=== PATIENT | female | born 1985 | race Caucasian/White ===

== ENCOUNTER 2018-01-11 22:34 | Emergency (ER) | payer OTHER ==
[~2018-01-11] VITALS: Ht 162.6 cm; Wt 105.2 kg
[2018-01-11 22:49] VITALS: BP 137/89
--- NOTE | 2018-01-11 23:12 | ED UPPER/LOWER EXTREMITY COMPL ---
History of Present Illness General Chief Complaint: Lower Extremity Injury Stated Complaint: "I FELL DOWN MY BACK STAIRS, I FELT THINGS OUCHY" Source: patient Exam Limitations: no limitations Vital Signs & Intake/Output Vital Signs & Intake/Output Vital Signs Date Time Temp Pulse Resp B/P B/P Pulse O2 O2 Flow FiO2 Mean Ox Delivery Rate 01/119 99.4 86 18 137/89 98 Room Air ED Intake and Output 01/12 0000 01/11 1200 Intake Total Output Total Balance Patient 232 lb Weight Weight Estimated Measurement Method Allergies Coded Allergies: No Known Allergies (01/11/18) Triage Note: RECEIVED 32 YO FEMALE C/O MISSED A STEP IN BACK STAIRS AND FELL DOWN 2 STEPS, INJURING LEFT ANKLE. PT REPORTS LEFT ANKLE PAIN AND SWELLING, SEVERE PAIN WITH WEIGHT BEARING Triage Nurses Notes Reviewed? yes Onset: Just prior to arrival Duration: hour(s): (1) Timing: remote history Severity: moderate Severity Numbers: 8 Pain/Injury Location: Right: Ankle. Method of Injury: twisted Modifying Factors: Improves With: immobilization. Worsens With: movement. Associated Symptoms: swelling : No Patient currently breastfeeds: No HPI: Patient is a 32-year-old female presenting to the emergency department complaining of left ankle pain after twisting it and slipping down 2 steps prior to arrival. Denies x-ray. No back pain or neck pain. Pain of the ankle is moderate achy and throbbing worse with range of motion and palpation. Denies taking anything prior to arrival to the emergency department for pain. Denies numbness or tingling. Pain radiates over the top of the left foot. (Penelope De León) Past History Travel History Traveled to [place] past 21 day No Medical History Any Pertinent Medical History? see below for history Neurological: NONE EENT: NONE Cardiovascular: NONE Respiratory: NONE Gastrointestinal: NONE Hepatic: NONE Renal: NONE Musculoskeletal: NONE Psychiatric: bipolar disease Endocrine: hypothyroidism Blood Disorders: NONE Cancer(s): NONE Surgical History Surgical History: non-contributory Psychosocial History What is your primary language [place] Tobacco Use: Never used Family History Hx Contributory? No (Penelope De León) Review of Systems Review of Systems Constitutional: Reports: no symptoms. Comments Review of systems: See HPI, All other systems negative. Constitutional, no chills fever or weight loss HEENT: No visual changes no sore throat no congestion Cardiovascular: No chest pain ,palpitation Skin, no jaundice no rashes Respiratory: No dyspnea cough sputum GI: No nausea no vomiting Muscle skeletal: no back pain, no neck pain, Neurologic: No numbness Immunology: No splenectomy or history of AIDS (Hussain RAMEY,Penelope) Physical Exam Physical Exam General Appearance: well developed/nourished, no apparent distress, alert, awake , comfortable Comments: Well-developed well-nourished person in no acute distress HEENT: Atraumatic, normocephalic Neck: Normal inspection Cardiovascular: Pedal pulses are 2+ bilaterally. Respiratory: No respiratory distress. Extremity: Left Ankle with moderate tenderness laterally over the lateral ligaments. No bony tenderness. No medial tenderness. Range of motion is near full but somewhat limited due to pain. No instability is noted. Skin is intact, mild swelling and ecchymosis laterally. The foot is neurovascularly intact with sensation and motor grossly intact. There is no foot tenderness or fifth metatarsal tenderness. Able to move all toes. Neuro: Alert oriented x3, motor sensory normal Skin: No appreciable rash on exposed skin, skin is warm and dry. Psych: Mood and affect is normal, memory and judgment is normal. (Hussain RAMEY,Penelope) Progress Differential Diagnosis: contusion, dislocation, fracture, sprain, tendon injury Plan of Care: Orders Procedure Date/time Status XRY-ANKLE 3 OR MORE VIEWS L 01/11 2254 Active Diagnostic Imaging: Viewed by Me: Radiology Read. Discussed w/RAD: Radiology Read. Comments: PATIENT: BRUCE ROBLES PRESENT AGE: 32 PATIENT ACCOUNT NO: [id number] : 86 LOCATION: [facility] ORDERING PHYSICIAN: Penelope RAMEY SERVICE DATE: 01/11/18 EXAM TYPE: RAD - XRY-ANKLE 3 OR MORE VIEWS L EXAMINATION: LEFT ANKLE 3 VIEWS CLINICAL INFORMATION: Left ankle pain following injury. COMPARISON: None. TECHNIQUE: AP, lateral, oblique views of the left ankle were obtained. FINDINGS: There are no fractures or dislocations. There is soft tissue swelling overlying the lateral malleolus. No ankle joint effusion is identified. IMPRESSION: Soft tissue swelling without fracture or dislocation. DICTATED BY: Shakir Delaney MD DATE/TIME DICTATED:01/11/182329 MANAGER EXCHANGE:[id number] DATE/TIME TRANSCRIBED:01/11/182329 CONFIDENTIAL, DO NOT COPY WITHOUT APPROPRIATE AUTHORIZATION. <Electronically signed in Other Vendor System> SIGNED BY: Shakir Delaney MD 01/11/182337 (Penelope De León) Departure Departure Time of Disposition: 2338 Disposition: HOME OR SELF CARE Condition: Stable Clinical Impression Primary Impression: Ankle sprain Qualifiers: Encounter type: initial encounter Involved ligament of ankle: unspecified ligament Laterality: left Qualified Code: S93.402A - Sprain of unspecified ligament of left ankle, initial encounter Referrals: Dakota GU,Deshawn Coleman (PCP/Family) Nisha GU,Kai Benson Additional Instructions: Follow-up with your primary care physician in the next 5-7 days, call to make an appointment. Wear air cast as directed. Rest ice and elevate affected extremity. Take [id number] anti-inflammatories as directed to help with pain and swelling. Return for worsening symptoms or concerns. Departure Forms: Customer Survey General Discharge Information (Penelope De León) PA/BULL GANG WORKER Co-Sign Statement Statement: ED Attending supervision documentation- I saw and evaluated the patient. I have also reviewed all the pertinent lab results and diagnostic results. I agree with the findings and the plan of care as documented in the PA's/BULL GANG WORKER's documentation. x I have reviewed the ED Record and agree with the PA's/BULL GANG WORKER's documentation. [] Additions or exceptions (if any) to the PAs/BULL GANG WORKER's note and plan are summarized below: [] (Roscoe GU,Rishi) Procedures Splinting Location: left ankle Manual Alignment Performed: No Pre-Made Type: aircast Splint: air cast Splint Applied By: splint applied by other (nursing) Pre-Proc Neuro Vasc Exam: normal Post-Proc Neuro Vasc Exam: normal Progress: tolerated well (Penelope De León)
--- NOTE | 2018-01-11 23:38 | RADIOLOGY REPORT ---
EXAMINATION: LEFT ANKLE 3 VIEWS CLINICAL INFORMATION: Left ankle pain following injury. COMPARISON: None. TECHNIQUE: AP, lateral, oblique views of the left ankle were obtained. FINDINGS: There are no fractures or dislocations. There is soft tissue swelling overlying the lateral malleolus. No ankle joint effusion is identified. IMPRESSION: Soft tissue swelling without fracture or dislocation.
== END 2018-01-11 23:47 ==
LOC: ERH 22:34
DX: S93.402A Sprain of unspecified ligament of left ankle, initial encounter (principal); W10.9XXA Fall (on) (from) unspecified stairs and steps, initial encounter; Y92.9 Unspecified place or not applicable; Y93.9 Activity, unspecified
CPT/HCPCS: 73610-LT